=== PATIENT | male | born 1985 | race Caucasian/White ===

== ENCOUNTER 2023-12-30 21:40 | Emergency (ER) | payer SELFPAY ==
[2023-12-30 21:42] VITALS: BP 170/110
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
[2023-12-30 23:20] VITALS: BP 146/92
== END 2023-12-30 23:21 | disposition home or self-care (01) ==
LOC: EMR 21:40
PROVIDERS: EMERGENCY PHYSICIAN Emergency Medicine; FAMILY PHYSICIAN Internal Medicine
DX: Z04.1 Encounter for examination and observation following transport accident (principal); I10 Essential (primary) hypertension; F17.290 Nicotine dependence, other tobacco product, uncomplicated
CPT/HCPCS: 99282

== ENCOUNTER 2024-01-12 17:56 | Emergency (ER) | payer OTHER, BC, SELFPAY ==
[2024-01-12 18:06] VITALS: BP 194/132
[2024-01-12 18:49] VITALS: BP 148/107
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
== END 2024-01-12 20:19 | disposition home or self-care (01) ==
LOC: EMR 17:56
PROVIDERS: EMERGENCY PHYSICIAN Emergency Medicine; FAMILY PHYSICIAN Physician Assistant
DX: M54.10 Radiculopathy, site unspecified (principal); F17.290 Nicotine dependence, other tobacco product, uncomplicated; I10 Essential (primary) hypertension
CPT/HCPCS: 99283; 72050

== ENCOUNTER 2025-07-22 20:38 | Emergency (ER) | payer BC, SELFPAY ==
[2025-07-22 20:45] VITALS: BP 163/93
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
== END 2025-07-22 21:57 | disposition home or self-care (01) ==
LOC: EMR 20:38
PROVIDERS: EMERGENCY PHYSICIAN Emergency Medicine; FAMILY PHYSICIAN Internal Medicine
DX: S93.402A Sprain of unspecified ligament of left ankle, initial encounter (principal); X50.1XXA Overexertion from prolonged static or awkward postures, initial encounter; I10 Essential (primary) hypertension; F17.290 Nicotine dependence, other tobacco product, uncomplicated; Z90.49 Acquired absence of other specified parts of digestive tract
CPT/HCPCS: 99283; 73610; 73630